=== PATIENT | female | born 1990 | race Two or more races ===

== ENCOUNTER → 2025-04-05 | Outpatient (CLI) | payer OTHER, SELFPAY ==
--- NOTE | 2025-04-05 15:39 | XR_ITS ---
Examination: Lumbar spine, 5 views Technique: Lumbar spine AP, lateral, coned lateral lower lumbar spine, bilateral obliques 5 views Exam date and time: May 02, 2025 1558 hours INDICATIONS: Low back pain 6 months. FINDINGS: Adequate alignment lumbar vertebral bodies Mild disc narrowing L4-L5, L5-S1 No lumbar fracture IMPRESSION: Early degenerative disc disease L4-L5, L5-S1
== END | disposition home or self-care (01) ==
PROVIDERS: PCP Physician Assistant; Referring Provider Physician Assistant; Visit Provider Physician Assistant
DX: M51.370 Other intervertebral disc degeneration, lumbosacral region with discogenic back pain only (principal); M51.360 Other intervertebral disc degeneration, lumbar region with discogenic back pain only
CPT/HCPCS: 72110

== ENCOUNTER 2025-05-13 20:23 | Emergency (ER) | payer OTHER, SELFPAY ==
[2025-05-13 20:24] VITALS: BMI 38.0
[2025-05-13 20:37] VITALS: BP 114/74; PULSE 84; RESP 16; TEMP 37.2; O2SAT 95
--- NOTE | 2025-05-13 20:44 | XR_ITS ---
Examination: Breast ultrasound, unilateral, right complete Date and time of exam: May 13, 2025 2156 hours INDICATIONS: Onset right breast swelling and pain beginning today Technique: Real-time butler scale ultrasonographic imaging performed right breast including all 4 quadrants as well as nipple retroareolar and axillary region. Findings: No cystic or solid mass IMPRESSION: BI-RADS Category 1: Negative study
[2025-05-13] MEDS: cefTRIAXone 1,000 MG, LIDOCAINE 1% 20 ML 2.1 ML IM (20:48)
[2025-05-13 21:09] LABS: Basophils # (Auto) 0.0 Thou/mm3 (0.0-0.2); Basophils % (Auto) 0 % (0-2.5); Eosinophils # (Auto) 0.2 Thou/mm3 (0.0-0.5); Eosinophils % (Auto) 1 % (0-10); Hematocrit 38.2 % (36.0-46.0); Hemoglobin 13.1 g/dL (12.0-16.0); Immature Granulocytes Auto 0.03 Thou/mm3 (0.00-0.00); Lymphocytes # (Auto) 3.1 Thou/mm3 (1.0-4.8); Lymphocytes % (Auto) 28 % (10-50); Mean Corpuscular HGB Conc 34.3 g/dl (31.0-37.0); Mean Corpuscular Hemoglobin 29.2 pg (25.0-35.0); Mean Corpuscular Volume 85 fL (80-100); Monocytes # (Auto) 0.5 Thou/mm3 (0.0-0.8); Monocytes % (Auto) 5 % (0-12); Neutrophils # (Auto) 7.4 Thou/mm3 (1.8-7.7); Neutrophils % (Auto) 66 % (37-80); Nucleated Red Blood Cell # 0.00 Thou/mm3 (0.00-0.00); Nucleated Red Blood Cell % 0 /100 WBC (0); Platelet Count 221 Thou/mm3 (140-440); RDW Standard Deviation 36.9 fL (36.4-46.3); Red Blood Count 4.49 Miln/mm3 (4.00-5.20); White Blood Count 11.2 Thou/mm3 (3.6-11.0)
[2025-05-13 21:37] LABS: Alanine Aminotransferase 23 U/L (10-49); Albumin, Serum 4.4 gm/dL (3.5-5.0); Albumin/Globulin Ratio 1.7 (1.2-2.2); Alkaline Phosphatase 122 U/L (46-116); Anion Gap 10 (7-16); Aspartate Amino Transferase 20 U/L (0-34); BUN/Creatinine Ratio 16 Ratio (12-20); Bilirubin,Total 0.3 mg/dL (0.3-1.2); Blood Urea Nitrogen 11 mg/dL (9-23); Calcium 9.8 mg/dL (8.3-10.6); Calcium (Corrected) 9.8 mg/dL (8.5-10.1); Carbon Dioxide 25.8 mMol/L (20.0-31.0); Chloride 103 mMol/L (98-107); Creatinine (Component) 0.7 mg/dL (0.6-1.3); Estimated Creatinine Clearance 112.1 mL/min (>60); Globulin 2.6 gm/dL (2.3-3.5); Glucose 97 mg/dL (74-106); Osmolality,Calculated 276 (275-295); Potassium 3.9 mMol/L (3.4-5.1); Sodium 139 mMol/L (136-145); Total Protein 7.0 gm/dL (5.7-8.2); eGFR > 60 See Note
--- NOTE | 2025-05-14 00:20 | PD.EDADULT ---
ED General RME/HPI General Chief complaint: General Adult/Misc Complain Stated complaint: I THINK I HAVE MASTITIS, RIGHT BREAST Time Seen by Provider: 05/13/25 20:30 Arrival date/time: 05/13/25 20:23 This is a case of 34-year-old female who came in the emergency room due to breast pain history of present illness started today when the patient noted to have redness swelling and pain on the right breast patient denies any injury or trauma patient is breast-feeding no fever no chills Limitations: no limitations Related Data Home Medications ?Medication ?Instructions ?Recorded ?Confirmed aspirin 81 mg capsule 81 mg PO QDAY 05/24/21 05/24/21 vit no.95-ferrous 1 tab PO QDAY 05/24/21 05/24/21 fumarate 28 mg-folic acid 800 mcg tablet () Previous Rx's ?Medication ?Instructions ?Recorded ibuprofen 600 mg tablet 600 mg PO Q8H PRN pain #30 tabs 05/27/21 oxycodone-acetaminophen 5 mg-325 1 tab PO Q8H PRN pain #20 tabs 05/27/21 mg tablet (Percocet) cephalexin 500 mg capsule 500 mg PO QID 10 days #40 caps 05/13/25 Allergies Allergy/AdvReac Type Severity Reaction Status Date / Time coconut Allergy Verified 05/13/25 20:24 Review of Systems Review of Systems Systems Reviewed: All systems reviewed, normal except as documented Constitutional Constitutional: Reports system reviewed and no additional complaints, except as documented and Reports as per HPI Cardiovascular Cardiovascular: Reports system reviewed and no additional complaints, except as documented and Reports as per HPI Respiratory Respiratory: Reports system reviewed and no additional complaints, except as documented and Reports as per HPI Gastrointestinal Gastrointestinal: Reports system reviewed and no additional complaints, except as documented and Reports as per HPI Genitourinary Genitourinary: Reports system reviewed and no additional complaints, except as documented and Reports as per HPI Musculoskeletal Musculoskeletal: Reports system reviewed and no additional complaints, except as documented and Reports as per HPI Neurologic Neurologic: Reports system reviewed and no additional complaints, except as documented and Reports as per HPI Past Medical History Past Medical History NEUROLOGIC: Negative Neurological Disorders CARDIAC: Negative Cardiac Disorders or Congestive Heart Failure RESPIRATORY: Negative Chronic Obstructive Pulmonary Disease (COPD) GASTROINTESTINAL: Positive Obesity; Negative Gastrointestinal Disorders, Hepatitis or Colorectal Cancer GENITOURINARY: Negative Genitourinary Disorders, Renal Disease or Prostate Cancer REPRODUCTIVE: Negative Breast Cancer or Testicular Cancer MUSCULOSKELETAL: Negative Musculoskeletal Disorders or Bone Cancer ENDOCRINE: Negative Endocrine Disorders, Diabetes Mellitus Type 1 or Diabetes Mellitus Type 2 HEMATOLOGIC: Negative Blood Disorders OTHER HISTORY: Positive Hospitalization (stomach inflamation) and Chicken Pox; Negative Autoimmune Disease, Blood Transfusions, Blood Transfusion Reaction, Anesthesia Reactions, MRSA, VRSA, Vancomycin-Resistant Enterococci, Human Immunodeficiency Virus (HIV), Measles, Mumps, Rubella (French Measles), Pertussis, Clostridium Difficile, Cancer, Breast Cancer, Cervical Cancer, Colorectal Cancer, Lung Cancer, Ovarian Cancer, Prostate Cancer or Testicular Cancer Family History FAMILY HISTORY: Positive Family Cardiac Disorders (hypertension); Negative Family Psychiatric Problems, Family Respiratory Disorders, Family Gastrointestinal Problems, Family Cancer, Family Surgery or Family Anesthesia Reaction Social History SMOKING STATUS: Never smoker ED Exam General Limitations: Present no limitations General appearance: Present alert, in no apparent distress and other (Is awake alert oriented not in distress nontoxic looking well-hydrated well-nourished) Head Head exam: Present atraumatic, normocephalic and normal inspection Eye Eye exam: Present normal appearance, PERRL and EOMI ENT ENT exam: Present normal exam, normal oropharynx and mucous membranes moist Neck Neck exam: Present normal inspection, full ROM and trachea midline; Absent tenderness, meningismus, lymphadenopathy or thyromegaly Chest Chest inspection: Present normal inspection and symmetric chest wall rise; Absent tenderness Expanded Chest Exam Breast: right: erythema (Noted right breast tender mild redness with mild swelling no cellulitis no abscess), swelling (No nipple retraction no nipple discharge) and tenderness (No mass no cellulitis no ulcer no cyst noted) Respiratory Respiratory exam: Present normal lung sounds bilaterally; Absent respiratory distress, wheezes, stridor, accessory muscle use or prolonged expiratory phase Cardiovascular Cardiovascular exam: Present regular rate, normal rhythm and normal heart sounds; Absent bradycardia, tachycardia, irregular rhythm, systolic murmur or diastolic murmur Abdominal Exam Abdominal exam: Present soft and normal bowel sounds; Absent distention, tenderness, guarding, rebound, rigidity, diminished bowel sounds, hyperactive bowel sounds, hypoactive bowel sounds or organomegaly Extremities Exam Extremities exam: Present normal inspection and full ROM Back Exam Back exam: Present normal inspection and full ROM Neurological Exam Neurological exam: Present alert, oriented X3, CN II-XII intact, normal gait and reflexes normal; Absent motor sensory deficit Psychiatric Psychiatric exam: Present normal affect and normal mood Skin Skin exam: Present warm, dry, intact and normal color Course Quality Measures none Orders Category Date Time Status US breast RT complete Stat Exams 05/13/25 20:44 Completed CBC Stat Lab 05/13/25 21:00 Completed CMP [Comprehensive Metabolic Panel] Stat Lab 05/13/25 21:00 Completed cefTRIAXone [Rocephin] 1,000 mg Med 05/13/25 20:44 Discontinued Lidocaine 1% 20 ml [Xylocaine 1% 20 ML] 2.1 ml IM X1 Vital Signs Vital signs: Vital Signs Temperature 99.0 F 05/13/25 20:37 Pulse Rate 84 05/13/25 20:37 Respiratory Rate 16 05/13/25 20:37 Blood Pressure 114/74 05/13/25 20:37 Pulse Oximetry (%) 95 05/13/25 20:37 Oxygen Delivery Method Room Air 05/13/25 20:37 Oxygen saturation is 95% in room air Discharge Plan Plan Patient Disposition: HOME (Self Care) Patient condition on transfer: Stable Prescriptions/Referrals Prescriptions/Med Rec: New cephalexin 500 mg capsule 500 mg PO QID 10 Days Qty: 40 0RF No Action PNV no.95-ferrous fumarate-FA [] 28 mg iron- 800 mcg tablet 1 tab PO QDAY aspirin 81 mg Capsule 81 mg PO QDAY oxycodone-acetaminophen [Percocet] 5-325 mg tablet 1 tab PO Q8H MDD 15 PRN (Reason: pain) Qty: 20 0RF ibuprofen 600 mg tablet 600 mg PO Q8H PRN (Reason: pain) Qty: 30 0RF Referrals: Jaida Castellanos PA-C [Primary Care Provider] - In 1 week Problem List Clinical Impression: Mastitis Patient/Caregiver Discharge Instructions Education Materials: ED Mastitis Additional Instructions: Follow-up with your primary care physician in 2 days for reevaluation return to the emergency room in 2 days for reevaluation of mastitis worsening symptoms or any emergent condition call 911 or go to the nearest emergency room take only Tylenol as needed for pain keep the area clean and dry finish the course of antibiotic Print Language: Vincentian Stand Alone Forms: Jemma Award Info., Patient Portal Info Letter PA/RAIL SPLITTER Supervising Physician PA/RAIL SPLITTER Supervising Physician: Dr. Jessica Boucher MDM Narrative MDM hospital course (for use when minimal MDM required): This is a case of 34-year-old female who came in the emergency room due to breast pain history of present illness started today when the patient noted to have redness swelling and pain on the right breast patient denies any injury or trauma patient is breast-feeding no fever no chills physical examination patient is awake alert oriented not in distress nontoxic looking well-hydrated well-nourished noted a mild to moderate tenderness around the right breast with mild swelling and redness no nipple retraction no discharge no lesion no abscess no cellulitis warm to touch ultrasound of the right breast is normal no cellulitis no abscess mild leukocytosis WBC is 11,000 no anemia kidney and liver function is normal no electrolyte imbalance based on the physical examination and history patient was given ceftriaxone IM for right mastitis and was discharged with cephalexin which is safe for breast-feeding patient will follow-up with PCP for reevaluation and return in the emergency room in 2 days for reevaluation of mastitis for any worsening symptoms or any emergent concerns she will return in the emergency room immediately or call [phone] Clinical Information Provided by: none Medical Records reviewed [facility] Meds/Rx considered, not ordered describe: Given Labs/Rad/Tests considered, not ordered Describe: Reviewed Chronic Illness/Social Conditions which may negatively complicate care or outcome(s)-explain: None or not applicable EKG EKG not done Labs Labs: other Lab(s) Interpretation(s): Reviewed Imaging Imaging interpretation: other (Reviewed) Imaging Interpretation(s): Reviewed Medication Administration(s) none (Given) Medication Administration History Discontinued Medications Ceftriaxone Sodium 1,000 mg/ (Lidocaine HCl 2.1 ml) 0 mg IM X1 ONE Stop: 05/13/25 20:45 Last Admin: 05/13/25 20:48 Dose: 1,000 mg Documented By: BD Given Diagnosis Differential Diagnosis ED Complaint MDM: Mastitis Diagnoses ruled out and/or further discussions: Mastitis
== END 2025-05-14 | disposition home or self-care (01) ==
PROVIDERS: Nurse Practitioner Family; Emergency Provider Emergency Medicine; PCP Physician Assistant
DX: N61.0 Mastitis without abscess (principal)
CPT/HCPCS: 36415; 76641; 80053; 85025; 96372; 99283; J0696; J3490